=== PATIENT | female | born 1965 | race Caucasian/White ===

== ENCOUNTER → 2024-05-24 | Outpatient (CLI) | payer OTHER ==
--- NOTE | 2024-05-25 22:36 | XR ---
EXAMINATION TYPE: XR chest 2V DATE OF EXAM: 05/24/2024 COMPARISON: None INDICATION: Clinical trial, TB evaluation TECHNIQUE: Frontal and lateral views of the chest are obtained. FINDINGS: The heart size is normal. The pulmonary vasculature is normal. There is a 0.8 cm nodule mid right lung. This is nonspecific. Short-term follow-up is recommended. Th ere may be some underlying punctate nodularities bilaterally.. IMPRESSION: 1. 0.8 cm nodule right mid lung with multiple punctate bilateral lung nodules. Infectious etiologies including tuberculosis are not excluded. [facility], , 05/25/2024 10:34 PM
== END | disposition home or self-care (01) ==
LOC: RADXRMAIN 16:42
PROVIDERS: ATTEND Dermatology MOHS-Micrographic Surgery
DX: R91.8 Other nonspecific abnormal finding of lung field (principal)
CPT/HCPCS: 71046